=== PATIENT | female | born 2000 | race Hispanic/Latino ===

== ENCOUNTER 2022-12-13 15:52 | Emergency (ER) | payer MEDICAID, OTHER ==
[~2022-12-13] VITALS: Ht 152.4 cm; Wt 54.0 kg
[2022-12-13 17:24] VITALS: BP 129/88; PULSE 64; RESP 18
[2022-12-13] MEDS ORDERED: DICYCLOMINE HCL 10 MG/5 ML ML PO ONE (18:30)
[2022-12-13] MEDS ORDERED: FAMOTIDINE 20MG TAB PO ONE (18:30)
[2022-12-13] MEDS ORDERED: MAG/ALUM/SIMETH 30 ML UDCUP PO ONE (18:30)
[2022-12-13] MEDS ORDERED: LIDOCAINE HCL 2% VISCOUS 15 ML UDCUP PO ONE (18:30)
[2022-12-13] MEDS ORDERED: FAMO20TA8 PO (20:09)
== END 2022-12-13 20:51 | disposition home or self-care (01) ==
LOC: EDH 15:52
DX: K29.70 Gastritis, unspecified, without bleeding (principal)
CPT/HCPCS: 71045

== ENCOUNTER 2023-05-30 19:23 | Emergency (ER) | payer BC ==
[~2023-05-30] VITALS: Ht 152.4 cm; Wt 51.3 kg
[~2023-05-30 19:23] MED LIST: FAMO20TA8 PO
[2023-05-30 20:08] LABS: BASOPHILS # (AUTO) 0.03 K/uL (0.00-0.20); BASOPHILS % (AUTO) 0.4 % (0.0-5.0); EOSINOPHILS # (AUTO) 0.12 K/uL (0.00-0.70); EOSINOPHILS % (AUTO) 1.7 % (0.0-8.0); HEMATOCRIT 33.3 % (36-48); IMMATURE GRANULOCYTE ABSOLUTE 0.02 K/uL (0-1); LYMPHOCYTES # (AUTO) 2.3 K/uL (1.0-4.8); LYMPHOCYTES % (AUTO) 31.4 % (21.0-51.0); MEAN CORPUSCULAR HEMOGLOBIN 30.8 pg (27.0-33.0); MEAN CORPUSCULAR HGB CONC 33.9 g/dL (32.0-36.0); MEAN CORPUSCULAR VOLUME 90.7 fL (79-99); MONOCYTES # (AUTO) 0.4 K/uL (0.1-1.0); MONOCYTES % (AUTO) 5.9 % (3.0-13.0); NEUTROPHILS # (AUTO) 4.4 K/uL (1.8-7.7); NEUTROPHILS % (AUTO) 60.3 % (40.0-77.0); PLATELET COUNT (AUTO) 231 K/uL (130-400); RED BLOOD CELL COUNT(AUTO) 3.67 MIL/uL (4.00-5.50); RED CELL DISTRIBUTION WIDTH 13.5 % (11.0-15.5); WHITE BLOOD COUNT (AUTO) 7.3 K/uL (4.8-10.8)
[2023-05-30 20:22] LABS: CREATININE 0.6 mg/dL (0.5-1.5); POTASSIUM 3.5 mmol/L (3.5-5.1)
[2023-05-30 20:32] LABS: ALBUMIN 2.7 g/dL (3.5-5.0); BILIRUBIN,TOTAL 0.2 mg/dL (0.2-1.0); TOTAL PROTEIN, SERUM 6.9 g/dL (6.0-8.3)
[2023-05-30] MEDS: ACETAMINOPHEN 500 MG TABLET PO ONE (23:11)
[2023-05-30 23:12] VITALS: BP 105/56; PULSE 56; RESP 17; O2SAT 96
== END 2023-05-30 23:21 | disposition home or self-care (01) ==
LOC: EDH 19:23
DX: O26.891 Other specified pregnancy related conditions, first trimester (principal); R07.89 Other chest pain
CPT/HCPCS: 36415; 80053; 84484; 84703; 85025; 93005